=== PATIENT | male | born 1970 | race Caucasian/White ===

== ENCOUNTER 2023-11-03 20:54 | Emergency (ER) | payer BC, SELFPAY ==
[2023-11-03 21:00] VITALS: BP 159/110
[2023-11-03 21:26] LABS: % Basophils 0.2 % (0-2); % Eosinophils 0.1 % (0-6); % Immature Granulocytes 0.4 % (0-0.5); % Lymphocytes 2.8 % (20.5-51.1); % Monocytes 7.5 % (1.7-9.3); Absolute Immature Granulocytes 0.1 10^3/uL (0-0.05); Absolute Lymphocytes 0.5 10^3/uL (1.2-3.4); Absolute Monocytes 1.2 10^3/uL (0.1-0.6); Absolute Neutrophils 14.3 10^3/uL (1.4-6.5); Hematocrit 37.5 % (39.0-52.0); Hemoglobin 13.5 g/dL (13.0-18.0); Mean Corpuscular Hgb 28.8 pg (27.0-31.0); Mean Corpuscular Volume 80.1 fL (80.0-94.0); Nucleated Red Blood Cells % 0 % (-); Platelet Count 238 10^3/uL (130-400); Red Blood Cell Count 4.68 10^6/uL (4.70-6.10); Red Cell Dist. Width 12.8 % (11.5-14.5); White Blood Cell Count 16.1 10^3/uL (4.8-10.8)
[2023-11-03 21:42] LABS: COVID-19 Antigen Negative (Negative)
[2023-11-03 21:47] LABS: ALT (SGPT) 30 U/L (0-50); AST (SGOT) 29 U/L (17-59); Albumin 4.3 g/dl (3.5-5.0); Alkaline Phosphatase 87 U/L (38-126); Blood Urea Nitrogen 13 mg/dl (9-20); Calcium 9.1 mg/dl (8.4-10.2); Carbon Dioxide 24 mmol/L (22-30); Chloride 98 mmol/L (98-107); Glucose 136 mg/dl (70-99); Lipase 101 U/L (23-300); Potassium 3.9 mmol/L (3.5-5.1); Sodium 135 mmol/L (135-145); Total Bilirubin 1.3 mg/dl (0.2-1.3); eGFR > 60.00
[2023-11-03 22:21] VITALS: BP 179/104
[2023-11-03 23:47] VITALS: BP 126/58; BMI 45.4
--- NOTE | 2023-11-03 23:51 | EDRN ---
Pt says he has had flu like symptoms since yesterday. Pt complains of chills, nausea, one episode of vomiting at 1800, fever of '100.something', frequent urination, pounding headache, weakness, fatigue and lightheadedness. Pt has been taking Tums
for chronic burping this weekend and last took tylenol for fever shortly before 1800. Pt denies cp, cough, sob.
--- NOTE | 2023-11-04 00:22 | ED.GENMED ---
History of Present Illness
General
Chief Complaint: Cold/Flu/URI Symptoms
Source: patient
Exam Limitations: none
Time Seen by Provider: 11/03/23 23:59
History of Present Illness
History of Present Illness:
This is a 53 year old male that comes in with c/o flu like symptoms. States that he started yesterday not feeling well. States that this continued today and he feels off. States that he has a headache that goes across his forehead. States that he
has chills today and was hot and cold. States that he also has urinary frequency. States that he felt slightly SOB and had a fever. States that he is also nauseated and vomited. States that he also feels lightheaded. Denies any chest pain, abd
pain, ,diarrhea, urinary burning
Past History
Past History
ED Past Medical History: HTN, Hypercholesterolemia and Other (Left Ventricular Hypertrophy, chronic back pain)
ED Past Surgical History: Tonsilectomy
Social History
Tobacco: Non-smoker
Alcohol: None
Personal:
Living: with family
Review of Systems
Review of Systems
All Other Systems: ROS reviewed and negative except as documented in HPI and ROS
Constitutional: Reports fever, chills and other (hot and cold)
EENT: Reports no symptoms
Respiratory: Reports trouble breathing (Slight); Denies cough
Cardiac: Reports no symptoms; Denies chest pain
ABD/GI: Reports nausea and vomiting; Denies abdominal pain or diarrhea
: Reports frequency; Denies dysuria or urgency
Musculoskeletal: Reports no symptoms
Skin: Reports no symptoms
Neurological: Reports headache and other (Lightheaded); Denies dizzy
Psychiatric: Reports no symptoms
Phy Exam
General Physical Exam
General Presentation: no apparent distress
General age: appears stated age
General Skin: warm and dry
General Habitus: obese
General Mental: alert
General Hydration: dry mucous membranes
ENT Exam
ENT Exam: TM's normal, pharynx normal and neck supple
Eye Exam
Eye Exam: EOMI
Cardiovascular Exam
Cardiovascular Exam: regular rate/rhythm and normal peripheral pulses
Pulmonary Exam
Pulmonary Exam: lungs clear, no respiratory distress, no rales, chest non tender, no crackles, no rhonchi, no wheezing and no cough
Gastrointestinal Exam
Gastrointestinal Exam: normal bowel sounds, non tender, soft, no organomegaly, no pulsatile mass, non distended and other (Obese)
Musculoskeletal Exam
Musculoskeletal Exam: full ROM and edema (Slight nonpitting lower legs)
Skin Exam
Skin Exam: normal color, warm/dry, no petechia and other (Chronic venous stasis dermatitis)
Psychiatric Exam
Psychiatric Exam: normal mood/affect
Course
Orders/Labs/Results
Orders:
Orders
11/03/23 21:05
ECG [Electrocardiogram (*1)] Urgent
Reason for Study: Fatigue / Weakness
EKG- Treatment ONCE
11/03/23 21:18
COVID-19 Antigen Urgent
Source: Nasal Swab
Influenza A+B Rapid Molecular Urgent
AMANDA Source: Nasal Swab
Specimen Description:
11/03/23 21:20
Complete Blood Count/With Diff Urgent
Comprehensive Metabolic Panel Urgent
Lipase Urgent
11/04/23 00:22
0.9% Sodium Chloride 1000 ml [Nss] 1,000 ml IV BOLUS
CR Chest - 2 Views Urgent
Comment:
Reason For Exam: Fever
11/04/23 00:27
Ondansetron Injectable [Zofran] 4 mg IV NOW STA
11/04/23 00:28
Urinalysis Reflex To Culture Urgent
Date Specimen was Collected: 11/04/23
Time Specimen was Collected: 00:27
Urine Microscopic Reflex Cult Urgent
11/04/23 00:32
Ketorolac [Toradol] 30 mg IV NOW STA
11/04/23 01:38
Acetaminophen [Tylenol] 1,000 mg PO NOW STA
Abnormal Lab Results
11/03/23 11/04/23
21:20 00:28
WBC 16.1 H 10^3/uL
(4.8-10.8)
RBC 4.68 L 10^6/uL
(4.70-6.10)
Hct 37.5 L %
(39.0-52.0)
Abs Immat Gran (auto) 0.1 H 10^3/uL
(0-0.05)
Absolute Neuts (auto) 14.3 H 10^3/uL
(1.4-6.5)
Absolute Lymphs (auto) 0.5 L 10^3/uL
(1.2-3.4)
Absolute Monos (auto) 1.2 H 10^3/uL
(0.1-0.6)
Neutrophils % 89.0 H %
(42.2-75.2)
Lymphocytes % 2.8 L %
(20.5-51.1)
Glucose 136 H mg/dl
(70-99)
Ur Occult Blood Reflex 1+ A
(Negative)
Urine RBC 7-10 A /HPF
(0-2)
Urine Bacteria (Reflex) Few A
(Negative)
11/03/23 21:20
11/03/23 21:20
Leukocytosis, Hyperglycemia. COVID and Influenza negative. , Lipase normal at 101, Urine negative for infection.
Vital Signs
Initial and Last Documented VS:
Initial Vital Signs
Temp Pulse Resp BP Pulse Ox
100.8 F H 122 20 159/110 96
11/03/23 21:00 11/03/23 21:00 11/03/23 21:00 11/03/23 21:00 11/03/23 21:00
Last Documented Vital Signs
Temp Pulse Resp BP Pulse Ox
99.5 F 93 20 129/68 96
11/03/23 23:47 11/04/23 01:30 11/04/23 01:30 11/04/23 01:30 11/04/23 01:30
Cost Analyst consulted with Physician
Cost Analyst consulted with physician?: Yes
Name of Physician Consulted: Dr. Nolen
MDM/Problems Addressed
Differential Diagnosis Includes:
Urinary tract infection, PNA, Viral syndrme
MDM/Problems Addressed:
This is a 53 year old male that comes in with c/o fever. States that this started yesterday with flu like symptoms. States that he is having urinary frequency.
will check labs, chest x-ray and urine, COVID and Influenza. Will given IV fluids,
Back into see patient. Explained that his blood work shows that his WBC are elevated, otherwise his labs are normal. He is negative for COVID and Influenza. Urine is negative for infection and chest x-ray is normal. Patient to use Tylenol and
Ibuprofen for fever and body aches. Follow up with the family doctor for recheck. Return with any concerns.
Chronic conditions affecting care:
NA
Acute Exacerbation and/or Progression of Chronic Illness:
NA
*Radiology
Radiology exam reviewed: preliminary read by ED provider (Chest- Negative for active disease. )
*Pulse Oximetry
Patient hypoxic: no
*EKG
Interpreted by ED Provider?: Yes
Heart Rate: 111
Rate: tachycardiac
Rhythm: sinus
[place]: left axis deviation
Interval: normal interval
QRS Pattern: left vent hypertrophy
Ischemia: no ischemia
*Forest Pathologist Interpretation
Rate: Forest Pathologist- N/A
*Critical Care Note
Total Time (30-74mins, 75-104mins- exclusive of procedures): Not Applicable
ED Attending Note
-
Portions of this chart may have been created with voice recognition software.� Occasional wrong word or��sound alike� substitutions may have occurred due to the inherent limitations of voice recognition software.
Discharge Plan
Departure
Patient Disposition: Home (Routine Discharge)
Date of Disposition: 11/04/23
Time of Disposition: 01:40
Patient with high blood pressure during this ER visit?: No
Condition: Good
Covid-19: Negative COVID-19
Discharge Problem:
Acute viral syndrome
Instructions: Fever, Adult (DC), Viral Syndrome (DC)
Prescriptions:
No Action
omeprazole 20 mg Capsule,Delayed Release(Dr/Ec)
20 mg PO BID
Mounjaro 5 mg/0.5 mL Pen Injector
5 mg SC SA
Zetia
1 tab PO DAILY
Patient Comments:
pt does not know mg
atorvastatin
1 tab PO DAILY
Patient Comments:
pt does not know mg
losartan
1 tab PO DAILY
Patient Comments:
pt does not know mg
Referrals:
Hernán Marshall MD [Family Provider] - Follow up in 2-3 days
Stand Alone Forms: Return to Work
Activity Restrictions/Additional Instructions:
As discussed, your blood work shows that your white blood cell count is elevated but otherwise your labs are normal. You are negative for COVID and Influenza. Your urine is normal along with your chest x-ray. This is most likely a viral illness.
Please increase your water intake to 8-8oz glasses daily. Please use Tylenol 1000mg every 6 hours for fever and body aches and alternata with Ibuprofen 600mg every 6 hours with food. So if you take Tylenol at 9am then Ibuprofen at 12noon and Tylenol
at 3pm and Ibuprofen at 6pm. Follow up with the family doctor for recheck. IF YOU HAVE ANY OTHER CONCERNS PLEASE RETURN TO THE EMERGENCY ROOM.
Interventions
Interventions:
*Risk Screen - Suicide Last Done: 11/03/23 21:00
*General Assessment Last Done: 11/03/23 21:00
*Neglect/Abuse Screening Last Done: 11/03/23 21:00
ED- Fall Risk Assessment Last Done: 11/03/23 23:47
*ED COVID-19 Vaccine History Last Done: 11/03/23 23:47
ED- Pulmonary Assessment Last Done: 11/03/23 23:47
Discharge Date and Time
Print Language: [id number]
[2023-11-04] MEDS: ZOFRAN 4 MG IV (00:38)
[2023-11-04] MEDS: NSS 1000 IV (00:38)
[2023-11-04] MEDS: TORADOL 30 MG IV (00:40)
[2023-11-04 00:56] LABS: Urine Albumin Trace (Neg - Trace); Urine Bilirubin Negative (Negative); Urine Character Clear (Clear); Urine Glucose Negative (Negative); Urine Ketone Negative (Negative); Urine Leukocyte Negative (Negative); Urine Nitrite Negative (Negative); Urine Occult Blood 1+ (Negative); Urine Specific Gravity 1.015 (<1.030); Urine Urobilinogen Negative (Neg - 1+)
[2023-11-04 01:03] LABS: Urine Color Yellow
[2023-11-04 01:30] VITALS: BP 129/68
[2023-11-04 01:30] LABS: Urine Amorphous Seen
[2023-11-04 01:31] LABS: Urine Bacteria Few (Negative)
[2023-11-04] MEDS: TYLENOL 1000 MG PO (01:48)
== END 2023-11-04 02:10 | disposition home or self-care (01) ==
LOC: EMR 20:54
PROVIDERS: Clinical Nurse Specialist Family Health; Emergency Medicine; EMERGENCY PHYSICIAN Emergency Medicine; FAMILY PHYSICIAN Family Medicine
DX: B34.9 Viral infection, unspecified (principal)
CPT/HCPCS: 99285; 96374; 96375; 96361; 71046; 80053; 81003; 81015; 83690; 85025; 87502; 87811; 93005